=== PATIENT | male | born 1975 | race Caucasian/White ===

== ENCOUNTER 2017-09-21 00:43 | Emergency (ER) | payer MEDICARE, MEDICAID ==
[~2017-09-21] VITALS: Ht 170.2 cm; Wt 57.8 kg
[~2017-09-21 00:43] MED LIST: CYCL-1 PO; FAMO20TA44 PO; OMEP20CA10 PO; SUCR1ORA2 PO
[2017-09-21 01:00] VITALS: BP 100/63
== END 2017-09-21 02:58 | disposition left against medical advice (07) ==
LOC: ER 00:44
DX: K08.89 Other specified disorders of teeth and supporting structures (principal); Z53.21 Procedure and treatment not carried out due to patient leaving prior to being seen by health care provider

== ENCOUNTER 2017-09-24 09:35 | Emergency (ER) | payer MEDICARE, MEDICAID ==
[~2017-09-24] VITALS: Ht 170.2 cm; Wt 72.0 kg
[2017-09-24 10:21] VITALS: BP 124/78
[2017-09-24] MEDS ORDERED: HYDR-3965 PO (11:55)
[2017-09-24] MEDS ORDERED: PENI500T2 PO (11:55)
== END 2017-09-24 12:08 | disposition home or self-care (01) ==
LOC: ER 09:35
DX: K08.89 Other specified disorders of teeth and supporting structures (principal); G89.29 Other chronic pain; F12.90 Cannabis use, unspecified, uncomplicated; Z60.2 Problems related to living alone; Z88.6 Allergy status to analgesic agent; Z79.899 Other long term (current) drug therapy
CPT/HCPCS: 99283

== ENCOUNTER 2017-11-30 06:15 | Emergency (ER) | payer MEDICARE, MEDICAID ==
[~2017-11-30] VITALS: Ht 170.2 cm; Wt 72.7 kg
[2017-11-30 06:25] VITALS: BP 109/70
[2017-11-30] MEDS ORDERED: amoxicillin 250mg capsule PO ONE (06:40)
[2017-11-30] MEDS ORDERED: acetaminophen 325mg tablet PO ONE (06:40)
[2017-11-30] MEDS ORDERED: HYDR-3965 PO (06:42)
[2017-11-30] MEDS ORDERED: AMOX500C2 PO (06:42)
== END 2017-11-30 06:54 | disposition home or self-care (01) ==
LOC: ER 06:16
DX: K08.89 Other specified disorders of teeth and supporting structures (principal); G89.29 Other chronic pain; M54.9 Dorsalgia, unspecified; F12.90 Cannabis use, unspecified, uncomplicated; Z88.6 Allergy status to analgesic agent
CPT/HCPCS: 99283

== ENCOUNTER 2018-01-09 16:52 | Emergency (ER) | payer MEDICARE, MEDICAID ==
[~2018-01-09] VITALS: Ht 172.7 cm; Wt 70.0 kg
[2018-01-09 16:57] VITALS: BP 113/81
[2018-01-09] MEDS ORDERED: AMOX-580 PO (17:17)
[2018-01-09] MEDS ORDERED: TRAM50TA2 PO (17:19)
[2018-01-09] MEDS ORDERED: CHLO473M3 PO (17:38)
== END 2018-01-09 17:45 | disposition home or self-care (01) ==
LOC: ER 16:52
DX: K04.7 Periapical abscess without sinus (principal); T45.1X5A Adverse effect of antineoplastic and immunosuppressive drugs, initial encounter; M06.9 Rheumatoid arthritis, unspecified; G89.29 Other chronic pain; F12.90 Cannabis use, unspecified, uncomplicated; Z88.6 Allergy status to analgesic agent; Z79.899 Other long term (current) drug therapy; Y92.89 Other specified places as the place of occurrence of the external cause
CPT/HCPCS: 99283

== ENCOUNTER 2018-01-16 17:35 | Emergency (ER) | payer MEDICARE, MEDICAID ==
[~2018-01-16] VITALS: Ht 170.2 cm; Wt 69.0 kg
[~2018-01-16 17:35] MED LIST changes: +AMOX-580 PO; +CHLO473M3 PO; +TRAM50TA2 PO
[2018-01-16] MEDS ORDERED: TOBR5DRO2 RIGHTEYE (18:04)
[2018-01-16 18:33] VITALS: BP 115/76
== END 2018-01-16 18:34 | disposition home or self-care (01) ==
LOC: ER 17:37
DX: H16.001 Unspecified corneal ulcer, right eye (principal); G89.29 Other chronic pain; F12.90 Cannabis use, unspecified, uncomplicated; Z88.6 Allergy status to analgesic agent; Z79.2 Long term (current) use of antibiotics; Z79.899 Other long term (current) drug therapy; Z60.2 Problems related to living alone
CPT/HCPCS: 99283

== ENCOUNTER 2020-02-08 16:59 | Emergency (ER) | payer MEDICARE, MEDICAID ==
[~2020-02-08] VITALS: Ht 167.6 cm; Wt 83.0 kg
[~2020-02-08 16:59] MED LIST changes: -AMOX-580 PO; -OMEP20CA10 PO; +OMEP20CA15 PO; +TOBR5DRO2 RIGHTEYE; -TRAM50TA2 PO
--- NOTE | 2020-02-08 19:07 | NUR ---
TO CT VIA WC
[2020-02-08 19:49] VITALS: BP 115/80
== END 2020-02-08 19:47 | disposition home or self-care (01) ==
LOC: ER 17:00
DX: H11.33 Conjunctival hemorrhage, bilateral (principal); R42 Dizziness and giddiness; H53.8 Other visual disturbances; R51.9 Headache, unspecified; F17.200 Nicotine dependence, unspecified, uncomplicated; F12.90 Cannabis use, unspecified, uncomplicated; Z72.89 Other problems related to lifestyle; Z60.2 Problems related to living alone; Z79.82 Long term (current) use of aspirin; Z79.899 Other long term (current) drug therapy; Z79.2 Long term (current) use of antibiotics
CPT/HCPCS: 70450; 99284

== ENCOUNTER 2020-08-20 11:04 | Day surgery (SDC) | payer MEDICARE, MEDICAID ==
[2020-08-16 10:54] LABS: BASOPHILS # (AUTO) 0.1 X10'3 (0-0.2); BASOPHILS % (AUTO) 1.1 % (0-1); EOSINOPHILS # (AUTO) 0.1 X10'3 (0-0.9); EOSINOPHILS % (AUTO) 1.2 % (0-6); LYMPHOCYTES # (AUTO) 2.6 X10'3 (1.1-4.8); LYMPHOCYTES % (AUTO) 32.6 % (21-51); MEAN CORPUSCULAR HEMOGLOBIN 30.3 PG (27.0-31.0); MEAN CORPUSCULAR HGB CONC 34.4 g/dL (33.0-36.5); MEAN CORPUSCULAR VOLUME 88.1 FL (78-98); MEAN PLATELET VOLUME 7.8 FL (7.4-10.4); MONOCYTES # (AUTO) 0.7 X10'3 (0-0.9); MONOCYTES % (AUTO) 8.2 % (2-12); NEUTROPHILS # (AUTO) 4.6 X10'3 (1.8-7.7); NEUTROPHILS % (AUTO) 56.9 % (42-75); PRE OP HEMATOCRIT 46.1 % (42.0-52.0); PRE OP HEMOGLOBIN 15.8 g/dL (14.0-17.9); PRE OP PLATELET COUNT 288 X10'3 (140-440); RED BLOOD COUNT 5.23 X10'6 (4.70-6.10); RED CELL DISTRIBUTION WIDTH 13.6 % (11.5-14.5)
[2020-08-16 11:10] LABS: PRE OP PROTIME 10.6 SECONDS (9.0-12.0)
[2020-08-16 11:13] LABS: ALBUMIN 4.1 G/DL (3.4-5.0); ALBUMIN/GLOBULIN RATIO 1.4 (1.1-1.5); ALKALINE PHOSPHATASE 45 IU/L (46-116); BLOOD UREA NITROGEN 12 MG/DL (7-18); BUN/CREATININE RATIO 12.4 (5.4-32.0); CALCIUM 9.3 MG/DL (8.5-10.1); CHLORIDE 106 MMOL/L (99-107); CREATININE 0.97 MG/DL (0.60-1.10); PRE OP ALT 24 U/L (30-65); PRE OP ANION GAP 7 (8-16); PRE OP AST 13 U/L (10-37); PRE OP BILIRUB, TOTAL 0.6 MG/DL (0.0-1.0); PRE OP GLUCOSE 101 MG/DL (70-104); PRE OP POTASSIUM 4.4 MMOL/L (3.4-5.1); PRE OP SODIUM 142 MMOL/L (135-145); TOTAL CARBON DIOXIDE 29.1 MMOL/L (24-32); TOTAL PROTEIN 7.1 G/DL (6.4-8.2); eGFR 84 ML/MIN
[~2020-08-20] VITALS: Ht 172.7 cm; Wt 79.6 kg
[2020-08-20] VITALS (10 sets, daily range): BP systolic 113–136; BP diastolic 78–89
[~2020-08-20 11:04] MED LIST changes: +ARTHRITIS MED; -CHLO473M3 PO; -CYCL-1 PO; -FAMO20TA44 PO; +LIDOcaine 1% W/epiNEPHrine 1:100,000 20ml vial ONE; -OMEP20CA15 PO; -SUCR1ORA2 PO; -TOBR5DRO2 RIGHTEYE; +cefTAZidime 1gm inj ONE; +cocaine 4% topical solution 4ml bottle ONE; +famotidine 20mg tablet PO ONE; +meperidine/PF 25mg/ml syringe IV PRN; +morphine 2 MG/ML inj. syringe IV PRN; +morphine 4 MG/ML inj SYRINge IV PRN; +mupirocin 2% ointment 22GM ONE; +ondansetron/PF 4mg/2ml inj IV PRN; +oxymetazoline 15 ML nasal spray NS ONE; +oxymetazoline 15 ML nasal spray NS PRN; +proCHLORperazine 10 MG/2 ml inj IV PRN; +ringers solution, lacted 1,000 ML IV SCH
[2020-08-20] MEDS ORDERED: fentaNYL/PF 50MCG/1 ML 2ML syringe ONE (12:53)
[2020-08-20] MEDS ORDERED: midazolam 1 mg/ML 2ml injection ONE (12:54)
[2020-08-20] MEDS ORDERED: sevoflurane 250ml liquid IH ONE (13:33)
[2020-08-20] MEDS ORDERED: ondansetron/PF 4mg/2ml inj ONE (13:33)
[2020-08-20] MEDS ORDERED: LIDOcaine 2% (20mg/ml) 5ml vial ONE (13:35)
[2020-08-20] MEDS ORDERED: propofol inj 20 ML IV ONE (13:35)
[2020-08-20] MEDS ORDERED: dexamethasone sod phosphate 4mg/ml inj. ONE (14:18)
--- NOTE | 2020-08-20 16:06 | NUR ---
Received from OR via [facility] IN STABLE CONDITION, accompanied by Anesthesiologist and SERVER DEVELOPER report given by Jessie. Addendum: 08/20/20 at 1646 by Sharonda Stein RN Amended: Links added.
--- NOTE | 2020-08-20 16:44 | NUR ---
NASAL PACKING REMOVED. Addendum: 08/20/20 at 1645 by Sharonda Stein RN Amended: Links added.
[2020-08-20] MEDS ORDERED: salt irrigation nasal spray 45 ML SPRAY NS PRN (17:10)
[2020-08-20] MEDS ORDERED: HYDROcodone/acetaminophen 10/325mg tab PO ONE (17:20)
--- NOTE | 2020-08-20 17:36 | NUR ---
PATIENT DISCHARGED FROM PACU IN STABLE CONDITION AFTER WRITTEN AND VERBAL DISCHARGE INSTRUCTIONS GIVEN. PATIENT GAVE VERBAL UNDERSTANDING OF INSTRUCTIONS GIVEN. PATIENT LEFT FACILITY VIA WHEELCHAIR WITH RN. Addendum: 08/20/20 at 1746 by Sharonda Stein RN Amended: Links added.
== END 2020-08-20 17:36 | disposition home or self-care (01) ==
LOC: PAS 11:04
PROVIDERS: ATTEND Otolaryngology
DX: J34.2 Deviated nasal septum (principal); J34.3 Hypertrophy of nasal turbinates; J32.9 Chronic sinusitis, unspecified; J98.8 Other specified respiratory disorders; F17.210 Nicotine dependence, cigarettes, uncomplicated; G43.909 Migraine, unspecified, not intractable, without status migrainosus; K21.9 Gastro-esophageal reflux disease without esophagitis; Z98.890 Other specified postprocedural states; Z79.899 Other long term (current) drug therapy; M19.90 Unspecified osteoarthritis, unspecified site; Z79.01 Long term (current) use of anticoagulants
CPT/HCPCS: 30140; 30520; 31254; 31256; 36415; 61782; 80053; 82948; 85025; 85576; 85610; 85730; 93005; A6402; C9250; J0713; J1100; J2001; J2175; J2250; J2405; J2704; J3010; J7040; J7120; U0003; U0005; 88300; 88304; 88311; A4618; A7000